=== PATIENT | female | born 1945 | race American Indian/Alaskan Native ===

== ENCOUNTER 2017-09-27 10:54 | Outpatient (CLI) | payer MEDICARE ==
[2017-09-27 11:25] LABS: Hematocrit 40.4 % (30.3-42.9); Mean Corpuscular HGB Conc 32 % (30-34); Mean Corpuscular Hemoglobin 30 pg (28-32); Mean Corpuscular Volume 91 fl (79-97); Platelet Count 254 K/mm3 (140-440); Red Blood Count 4.42 M/mm3 (3.65-5.03)
[2017-09-27 12:35] LABS: Alanine Aminotransferase 10 units/L (7-56); Albumin 4.1 g/dL (3.9-5); BUN/Creatinine Ratio 22; Blood Urea Nitrogen 11 mg/dL (7-17); Calcium 10.4 mg/dL (8.4-10.2); Chol/HDL Ratio 2.32 %; HDL Cholesterol 81 mg/dL (40-59); Hemolysis Index 3; LDL Cholesterol,Direct 107 mg/dL (50-130)
--- NOTE | 2017-09-27 12:35 | XRay Report ---
CHEST 2 VIEWS INDICATION: Sarcoidosis. COMPARISON: 01/07/2009 FINDINGS: Frontal and lateral chest radiographs demonstrate normal heart size. Scattered chronic interstitial changes/fibrosis again noted, more so in the right mid to lower lung zone. Left hilar/perihilar prominence with possible lymphadenopathy. No significant pleural effusions or CHF. Stable IVC filter and multiple imaged abdominal surgical clips, including probable cholecystectomy. Demineralized bones with mild thoracic kyphosis and multilevel spondylosis. CONCLUSION: No significant acute chest process in this patient with chronic lung changes and various abdominal postsurgical changes, as described. Thank you for the opportunity to participate in this patient's care.
--- NOTE | 2017-09-27 15:34 | Cat Scan Report ---
CT CHEST WITH CONTRAST INDICATION: Sarcoidosis. COMPARISON: 02/11/[address] FINDINGS: Chest CT performed following intravenous administration of 100 cc of Omnipaque 300. Stable, normal heart size. No effusions. Motion artifact limits exam. No aortic aneurysm or dissection. No definite suspicious pulmonary arterial filling defects. Pulmonary arterial hypertension though again noted. Few small bilateral hilar and numerous other mediastinal calcifications again noted. Variation in chronic changes within the lungs again noted with scarring/fibrosis most involving the right lower lobe. Left upper to midlung scarring/atelectasis again present, though less prominent. Mild right apical/upper lobe subpleural scarring now seen. Approximately 1.2 cm slightly spiculated density about the inferior aspect of the right upper lobe as on axial image 38, series 3 is more prominent than approximately 0.8 cm in 2008. No other focal suspicious lung masses seen. Normal imaged thyroid. Nonspecific distal esophageal wall prominence/thickening, not excluded for gastroesophageal reflux and/or hiatal hernia, amongst others. Imaged upper abdomen again demonstrates IVC filter, expected postcholecystectomy state imaged biliary tree appearance and few left hemiabdomen surgical clips along the colon. Multilevel thoracic spine degenerative changes/spurring. Possible osteopenia. L1 superior endplate irregularity/depression with approximately 60-70% loss of height as on sagittal image 66. CONCLUSION: 1. Mild variation in chronic bilateral lung changes since 2007 with most fibrosis again involving the right lower lobe, as detailed above. An approximately 1.1 cm somewhat spiculated density in inferior aspect of the right upper lobe however is more prominent and remains nonspecific for scarring in the given setting versus a neoplasm. Please also correlate clinically. PET/CT may help further characterize, if warranted. 2. Various other findings as old healed granulomatous disease, pulmonary arterial hypertension, distal esophageal prominence/thickening, multiple postsurgical changes in the imaged upper abdomen and L1 compression deformity, amongst others, as detailed above. Thank you for the opportunity to participate in this patient's care.
== END 2017-09-27 10:55 | disposition home or self-care (01) ==
LOC: CT 10:54
PROVIDERS: ATTEND Internal Medicine
DX: M47.894 Other spondylosis, thoracic region (principal); M40.294 Other kyphosis, thoracic region; D86.9 Sarcoidosis, unspecified; I27.21 Secondary pulmonary arterial hypertension; M81.0 Age-related osteoporosis without current pathological fracture; Z79.899 Other long term (current) drug therapy; Z98.890 Other specified postprocedural states
CPT/HCPCS: 36415; 71046; 71260; 80053; 80061; 82164; 84436; 84443; 85027; Q9967

== ENCOUNTER 2018-10-30 09:29 | Outpatient (CLI) | payer MEDICARE ==
--- NOTE | 2018-10-30 16:15 | PET Report ---
PET/CT:10/30/18 09:29:00 CLINICAL: Lung nodule and history of sarcoidosis. RADIOPHARMACEUTICAL: 12.775mCi F18-FDG. COMPARISON: 09/27/17 CT Chest TECHNIQUE- Following intravenous injection of F-18 FDG and an approximately 60 minute uptake period, CT and PET images from the mid skull to the upper thighs were acquired with the patient in the fasted state. No contrast was administered. The CT protocol used for this PET CT study is designed for attenuation correction and anatomic localization of PET abnormalities. This shirt closer CT is not desired to produce and cannot replace, [id number] diagnostic CT scans with specific imaging protocols for different body parts and indications. Plasma glucose at the time of this test: 92g/dl. The standardized uptake values (SUV) are normalized to patient body weight and indicate the highest activity concentration (SUV max) in a given disease site. FINDINGS: Brain--Physiologic FDG uptake in the visualized regions of the brain. Neck--Physiologic FDG uptake the mucosal structures. No mass or lymphadenopathy. Chest--Physiologic FDG uptake in mediastinal blood pool and myocardium. Lungs--No abnormal uptake. 1 cm right upper lobe spiculated non-FDG avid lung opacity image 69 correlates with the previously identified nodule. It has an SUV of 1.0. No other pulmonary nodule or mass. Right lower lobe atelectasis with bronchiectasis and extensive non-FDG avid interstitial opacities. Pleura/pericardium--No abnormal uptake. Thoracic nodes--No abnormal uptake. Hepatobiliary--No abnormal uptake. Liver background SUV mean, as a reference for comparing FDG studies, is 3.8 . No liver mass. Spleen--No abnormal uptake. Pancreas--No abnormal uptake. Adrenal Glands--No abnormal uptake. Kidneys/Ureters/Bladder--No abnormal uptake. Abdominopelvic Nodes--No abnormal uptake. Bowel/Peritoneum/Mesentery--No abnormal uptake. Pelvic organs--No abnormal uptake. Bones/Soft Tissues--No abnormal uptake and no suspicious bone lesion. Other findings: IVC filter. Status post cholecystectomy. IMPRESSION- Negative study with benign right upper lobe lung scar. Right lower lobe atelectasis along with extensive interstitial opacities which are presumably related to sarcoidosis.
== END 2018-10-30 09:30 | disposition home or self-care (01) ==
LOC: PET 09:29
PROVIDERS: ATTEND Internal Medicine
DX: J98.11 Atelectasis (principal); D86.9 Sarcoidosis, unspecified; Z79.899 Other long term (current) drug therapy
CPT/HCPCS: 78815; 82962; A9552